=== PATIENT | female | born 1960 | race Two or more races ===

== ENCOUNTER 2017-12-24 08:40 | Emergency (ER) | payer MEDICAID ==
--- NOTE | 2017-12-24 09:02 | ED Physician Chart ---
ED Chief Complaint/HPI - Patient Information Date Seen:: 12/24/17 Time Seen:: 09:02 Chief Complaint:: NAUSEA, VOMITING, DIARRHEA 3 DAYS Allergies:: Allergies Allergy/AdvReac Type Severity Reaction Status Date / Time ampicillin Allergy Verified 12/24/17 08:49 naproxen [From Naprosyn] Allergy Verified 12/24/17 08:49 Family Medical History - Family Member Brother History Unknown: Yes Ethnicity: Living Status: Still Living Hx Family Hypertension: Yes ED Labs/Radiology/EKG Results - Lab Results Results: Laboratory Results - last 24 hr 12/24/17 12/24/17 12/24/17 09:20 09:20 09:20 WBC 5.7 RBC 4.53 Hgb 14.6 Hct 43.4 MCV 95.7 MCH 32.2 H MCHC Differential 33.7 RDW 12.0 Plt Count 226 MPV 8.2 Neutrophils % 66.6 Lymphocytes % 22.8 Monocytes % 9.7 Eosinophils % 0.5 Basophils % 0.4 Sodium 133 L Potassium 3.2 L Chloride 99 Carbon Dioxide 26.2 Anion Gap 11.0 BUN 16 Creatinine 0.8 Est GFR ( Amer) > 60.0 Est GFR (Non-Af Amer) > 60.0 BUN/Creatinine Ratio 20.0 Glucose 98 Whole Bld Lactic Acid 1.15 Calcium 9.0 Total Bilirubin 0.4 AST 18 ALT 17 Alkaline Phosphatase 71 Total Protein 7.3 Albumin 4.5 Globulin 2.8 Albumin/Globulin Ratio 1.6 THE CBC WAS UNREMARKABLE WITH NO LEUKOCYTOSIS OR ANEMIA. METABOLIC STUDIES WERE POSITIVE FOR MILD HYPONATREMIA OF 133 AND HYPO-K LEAMY OF 3.2. RENAL FUNCTION IS NORMAL THE PATIENT IS EUGLYCEMIC WITH A GLUCOSE OF 98 THE WHOLE BLOOD LACTIC ACID IS WITHIN THE NORMAL PARAMETERS. LIVER FUNCTION TESTS WERE WITHIN NORMAL LIMITS. CT SCAN OF THE ABDOMEN AND PELVIS IS STILL PENDING AT THIS TIME. CT ABD/PELVIS; MILD ILIAS ANDDEGENERATING FIBROID. ED Assessment - Assessment General Assessment: CASE SUMMARY: THIS 57-YEAR-OLD FEMALE PRESENTS WITH A 3 THREE DAY HISTORYNAUSEA ,VOMITING,DIARRHEA,AND PAIN IN THE LEFT LOWER QUADRANT. ON PHYSICAL EXAMINATIONTHE PATIENT IS AWAKE AND ALERTWITH MODERATE TENDERNESS TO PALPATIONLEFT LOWER QUADRANT.LABORATORY STUDIES WERE UNREMARKABLEAND CT SCAN OF THE ABDOMENWAS NEGATIVE FOR ANY ACUTE PATHOLOGY.THE PATIENT'S SYMPTOMS WERE ADDRESSED WITH IV NORMAL SALINE,IV MORPHINE,AND IV ZOFRAN.HER SYMPTOMS HAD COMPLETELY RESOLVEDAND THE PATIENT WAS REQUESTING DISCHARGE HOMESHE WAS GIVEN A PRESCRIPTION FOR ZOFRAN 8 MGTO BE USED FOR ANY FURTHER NAUSEA OR VOMITING.SHE WAS FURTHER REVISED TO FOLLOW-UPWITH THEIR PRIMARY CARE PHYSICIANWITHIN TWO OR THREE DAYS. SHE WAS ALSO ADVISEDTHAT SHE CAN RETURN TO THE EMERGENCY DEPARTMENT IF SHE HAD RETURNED TO SIGNIFICANT PAIN, NAUSEA OR VOMITING. MDM DDX LT LOWER QUADRANTPAIN, NAUSEA AND VOMITING:NOT DIVERTICULITISBASED ON CT REPORT.NOT ISCHEMIC NOT COLLIDE USBASED ON PATIENT HISTORY, PHYSICAL EXAMINATION, LABORATORY STUDIES IN CT REPORT. NOT INCARCERATED HERNIABASED ON PHYSICAL EXAMINATIONIN THE CT REPORT. ED Septic Shock - . Is Septic Shock (SBP<90, OR Lactate>4 mmol\L) present?: No ED Discharge Plan - Patient Disposition Admit/Discharge/Transfer: PT DISCHARGED HOME Condition at Disposition: Improved Instructions: Diarrhea, Nausea and Vomiting, Uoad-du-Fjvs
[2017-12-24] MEDS ORDERED: Sodium Chloride 0.9% 1,000 ML IV SCH (09:30)
[2017-12-24 09:31] LABS: % BASOPHILS 0.4 % (0.0-2.0); % EOSINOPHILS 0.5 % (0.0-5.0); % LYMPHOCYTES 22.8 % (20.0-50.0); % MONOCYTES 9.7 % (2.0-10.0); % NEUTROPHILS 66.6 % (40.0-80.0); HEMATOCRIT 43.4 % (41.0-60); HEMOGLOBIN 14.6 gm/dL (12-16); LYMPHOCYTE ABSOLUTE 1.3 Th/cmm (1.5-3.0); MEAN CELL VOLUME 95.7 fl (81-100); MEAN CORPUSCULAR HEMOGLOBIN 32.2 pg (27.0-31.0); MEAN CORPUSCULAR HGB CONC 33.7 pg (28.0-36.0); MEAN PLATELET VOLUME 8.2 fl; MONOCYTE ABSOLUTE 0.6 Th/cmm (0.3-1.0); NEUTROPHILE ABSOLUTE 3.8 Th/cmm (1.8-8.0); PLATELET COUNT 226 Th/cmm (150-400); RED BLOOD COUNT 4.53 Mil/cmm (3.80-5.10); WHITE BLOOD COUNT 5.7 Th/cmm (4.8-10.8)
[2017-12-24 09:49] LABS: ALB/GLOB RATIO 1.6 (1.0-1.8); ALBUMIN 4.5 gm/dL (3.7-5.3); ALKALINE PHOSPHATASE 71 U/L (34-104); BILIRUBIN,TOTAL 0.4 mg/dL (0.3-1.0); BUN - UREA NITROGEN 16 mg/dL (7-25); CARBON DIOXIDE 26.2 mEq/L (21.0-31.0); CHLORIDE 99 mEq/L (98-107); CREATININE - SERUM 0.8 mg/dL (0.6-1.2); GFR AFRICAN-AMERICAN > 60.0 ml/min (>90); GFR NON AFRICAN-AMERICAN > 60.0 ml/min; GLUCOSE 98 mg/dL (70-105); POTASSIUM SERUM 3.2 mEq/L (3.5-5.1); SGOT 18 U/L (13-39); SGPT/ALT 17 U/L (7-52); SODIUM SERUM 133 mEq/L (136-145); TOTAL PROTEIN,SERUM 7.3 gm/dL (6.0-8.3)
[2017-12-24] MEDS ORDERED: IOHEXOL 300mgI/mL 100 ML VIAL ONE (10:15)
--- NOTE | 2017-12-25 08:30 | Diagnostic Imaging Report ---
Exam: CT examination of pelvis. HISTORY: Abdominal pain nausea vomiting. Total DLP equals 335 CTDI equals 7.4 Findings: Multiple contiguous thin section of the abdomen and pelvis obtained from lower thorax to pubic symphysis with administration of intravenous contrast material, no prior studies available comparison. The study demonstrates normal aeration of lung parenchyma the bases. The liver and spleen intact. The kidneys concentrate and excrete contrast material normal fashion. Left renal cyst measuring 2.4 cm appreciated. The pancreas is intact. The gallbladder is normal. The abdominal aorta is calcified. There is evidence for mild ileus. There is no evidence of diverticulitis or diverticular process . The appendix is normal. The uterus demonstrate low density area which might represent degenerative fibroid mass clinical correlation ultrasound exam of pelvis recommended. Uterine bladder is distended. Bony structures demonstrate no evidence for lytic or blastic changes. IMPRESSION: Mild ileus. The uterus demonstrate low density area which might represent degenerative fibroid mass clinical correlation ultrasound exam of pelvis recommended.
== END 2017-12-24 14:00 | disposition home or self-care (01) ==
LOC: ER 08:40
DX: R11.2 Nausea with vomiting, unspecified (principal); R19.7 Diarrhea, unspecified; R10.32 Left lower quadrant pain; Z88.1 Allergy status to other antibiotic agents; Z88.8 Allergy status to other drugs, medicaments and biological substances
CPT/HCPCS: 99285; 74177; 36415; 83605; 85025; 80053; 87040 ×2; J2405; J7030; Q9967

== ENCOUNTER 2018-10-11 12:23 | Inpatient (IN) | payer MEDICAID ==
--- NOTE | 2018-10-11 12:42 | ED Physician Chart ---
ED Chief Complaint/HPI - Patient Information Date Seen:: 10/11/18 Time Seen:: 12:30 Chief Complaint:: Abdominal Pain History of Present Illness:: onset x 3 days of dull, intermittent, crampy epigastric/abdominal pain with N/V/ D and melena; pt denies trauma, LOC, ALOC, AMS, H/As, S/T, neck pain, cough, C/P , SOB, A/C, fever, chills, or urinary s/s Allergies:: Allergies Allergy/AdvReac Type Severity Reaction Status Date / Time ampicillin Allergy Verified 12/24/17 08:49 ibuprofen Allergy Verified 10/11/18 12:38 naproxen [From Naprosyn] Allergy Verified 12/24/17 08:49 Historian:: Patient, Family Member Review:: Nurse's Note Reviewed ED Review of Systems - Review of Systems General/Constitutional: No fever, No chills, No weight loss, No weakness, No diaphoresis, No edema, No loss of appetite Skin: No skin lesions, No rash, No bruising Head: No headache, No light-headedness Eyes: No loss of vision, No pain, No diplopia ENT: No earache, No nasal drainage, No sore throat, No tinnitus Neck: No neck pain, No swelling, No thyromegaly, No stiffness, No mass noted Cardio Vascular: No chest pain, No palpitations, No PND, No orthopnea, No edema Pulmonary: No SOB, No cough, No sputum, No wheezing GI: Nausea, Vomiting, Diarrhea, Pain, Melena, No hematochezia, No constipation, No hematemesis G/U: No dysuria, No frequency, No hematuria, No nacturia Splitter Machine: No vaginal discharge, No abnormal vaginal bleed, No contraction Musculoskeletal: No bone or joint pain, No back pain, No muscle pain Endocrine: No polyuria, No polydipsia Psychiatric: No prior psych history, No depression, No anxiety, No suicidal ideation, No homicidal ideation, No auditory hallucination, No visual hallucination Hematopoietic: No bruising, No lymphadenopathy Allergic/Immuno: No urticaria, No angioedema Neurological: No syncope, No focal symptoms, No weakness, No paresthesia, No headache, No seizure, No dizziness, No confusion, No vertigo ED Past Medical History - Past Medical History Obtainable: Yes Past Medical History: HTN, Dyslipidemia Family History: HTN Social History: Non Smoker, No Alcohol, No Drug Use, Surgical History: None Psychiatricy History: None Medication: Reviewed Family Medical History - Family Member Brother History Unknown: Yes Ethnicity: Living Status: Still Living Hx Family Hypertension: Yes ED Physical Exam - Physical Examination General/Constitutional: Awake, Well-developed, well-nourished, Alert, No distress, GCS 15, Non-toxic appearing, Ambulatory Head: Atraumatic Eyes: Lids, conjuctiva normal, PERRL, EOMI Skin: Nl inspection, No rash, No skin lesions, No ecchymosis, Well hydrated, No lymphadenopathy ENMT: External ears, nose nl, TM canals nl, Nasal exam nl, Lips, teeth, gums nl , Oropharynx nl, Tonsils nl Neck: Nontender, Full ROM w/o pain, No JVD, No nuchal rigidity, No bruit, No mass, No stridor Other Neck comments:: supple; no meningeal signs; no cervical tenderness Respiratory: Nl effort/Exclusion, Clear to Auscultation, No Wheeze/Rhonchi/Rales Cardio Vascular: RRR, No murmur, gallop, rubs, NL S1 S2, Carotid/Femoral/Distal pulses equal bilaterally GI: No tenderness/rebounding/guarding, No organomegaly, No hernia, Normal BS's, Nondistended, No mass/bruits, No McBurney tenderness Other GI comments:: + Melena Stool: + OB; no pulsatile masses : No CVA tenderness Extremities: No tenderness or effusion, Full ROM, normal strength in all extremities, No edema, Normal digits & nails Neuro/Psych: Alert/oriented, DTR's symmetric, Normal sensory exam, Normal motor strength, Judgement/insight normal, Mood normal, Normal gait, No focal deficits Misc: Normal back, No paraspinal tenderness ED Labs/Radiology/EKG Results - Lab Results Comments:: Reviewed - Radiology Results Comments:: Reviewed - EKG Interpretations EKG Time:: 13:21 Rate & Rhythm: 60; NSR Comments:: non-specific st-t changes ED Septic Shock - . Is Septic Shock (SBP<90, OR Lactate>4 mmol\L) present?: No ED Reassessment (Disposition) - Reassessment Reassessment Condition:: Improved - Diagnosis Diagnosis:: Abdominal Pain; N/V/D; AGE; Melena; GI Bleed; Hypertension; Leukocytosis; Hyponatremia; Hyperlipidemia - Aftercare/Follow up Instructions Aftercare/Follow-Up Instructions:: Counseled pt regarding lab results/diagnosis & need follow up, Counseled pt & family regarding lab results/diagnosis & need follow up - Patient Disposition Discharge/Transfer:: Acute Care w/in this hosp Accepting Physician:: Dr. Miller Time Called:: 1430 Time Responded:: 14:30 Admitted to:: Telemetry Spoke to:: Dr. Miller Admitting Medical Physician:: Dr. Miller Condition at Disposition:: Stable, Improved
[2018-10-11] MEDS ORDERED: Sodium Chloride 0.9% 1,000 ML IV ONE (12:45)
[2018-10-11 13:08] LABS: % BASOPHILS 0.6 % (0.0-2.0); % EOSINOPHILS 0.6 % (0.0-5.0); % LYMPHOCYTES 22.4 % (20.0-50.0); % MONOCYTES 4.1 % (2.0-10.0); % NEUTROPHILS 72.3 % (40.0-80.0); BASOPHILE ABSOLUTE 0.1 Th/cumm (0-0.2); EOSINOPHILE ABSOLUTE 0.1 Th/cmm (0.1-0.4); HEMATOCRIT 43.5 % (41.0-60); HEMOGLOBIN 14.7 gm/dL (12-16); LYMPHOCYTE ABSOLUTE 2.5 Th/cmm (1.5-3.0); MEAN CELL VOLUME 95.3 fl (81-100); MEAN CORPUSCULAR HEMOGLOBIN 32.2 pg (27.0-31.0); MEAN CORPUSCULAR HGB CONC 33.7 pg (28.0-36.0); MEAN PLATELET VOLUME 7.8 fl; MONOCYTE ABSOLUTE 0.5 Th/cmm (0.3-1.0); NEUTROPHILE ABSOLUTE 7.9 Th/cmm (1.8-8.0); PLATELET COUNT 245 Th/cmm (150-400); RED BLOOD COUNT 4.56 Mil/cmm (3.80-5.10); WHITE BLOOD COUNT 11.1 Th/cmm (4.8-10.8)
[2018-10-11 13:15] LABS: INR 1.03 (0.5-1.4); PROTHROMBIN TIME (TEST) 10.7 SECONDS (9.5-11.5)
[2018-10-11 13:15] LABS: URINE SOURCE CLEAN C
[2018-10-11 13:28] LABS: URINE BILIRUBIN NEGATIVE (NEGATIVE); URINE BLOOD TRACE (NEGATIVE); URINE GLUCOSE (UA) NEGATIVE (NEGATIVE); URINE KETONE NEGATIVE (NEGATIVE); URINE LEUKOCYTE ESTERASE NEGATIVE (NEGATIVE); URINE MICROSCOPIC INDICATED? YES; URINE NITRATE NEGATIVE (NEGATIVE); URINE PROTEIN NEGATIVE (NEGATIVE); URINE UROBILINOGEN 0.2 E.U./dL (0.2 - 1.0)
[2018-10-11 13:28] LABS: ALB/GLOB RATIO 1.8 (1.0-1.8); ALBUMIN 4.9 gm/dL (3.7-5.3); ALKALINE PHOSPHATASE 75 U/L (34-104); AMYLASE SERUM 48 U/L (29-103); ANION GAP 12.1 (7.0-16.0); BILIRUBIN,TOTAL 0.4 mg/dL (0.3-1.0); BUN - UREA NITROGEN 12 mg/dL (7-25); CALCIUM SERUM 10.1 mg/dL (8.6-10.3); CARBON DIOXIDE 26.4 mEq/L (21.0-31.0); CHLORIDE 98 mEq/L (98-107); CHOLESTEROL 203 mg/dL (<200); CREATININE - SERUM 0.7 mg/dL (0.6-1.2); GFR AFRICAN-AMERICAN > 60.0 ml/min (>90); GFR NON AFRICAN-AMERICAN > 60.0 ml/min; GLUCOSE 98 mg/dL (70-105); HDL -HIGH DENSITY LIPOPROTEIN 73 mg/dL (23-92); LIPASE 17 U/L (11-82); POTASSIUM SERUM 3.5 mEq/L (3.5-5.1); SGOT 14 U/L (13-39); SGPT/ALT 14 U/L (7-52); SODIUM SERUM 133 mEq/L (136-145); TOTAL PROTEIN,SERUM 7.6 gm/dL (6.0-8.3); TRIGLYCERIDES 90 mg/dL (<150)
[2018-10-11 14:11] LABS: URINE CLARITY CLEAR (CLEAR); URINE COLOR YELLOW
[2018-10-11 14:16] LABS: URINE BACTERIA 1+ /hpf (NONE SEEN); URINE EPITHELIAL CELLS MODERATE /lpf (FEW); URINE WBC 0-2 /hpf (0-5)
--- NOTE | 2018-10-11 14:22 | Diagnostic Imaging Report ---
CT abdomen and pelvis without intravenous contrast Indication: Abdominal pain, rule out appendicitis Comparison: CT abdomen and pelvis on 12/24/2017, Technique: Axial images were obtained from the lung bases to the bilateral proximal femurs without IV contrast. Coronal reconstructions were made. total DLP: 376, CTDI8.3 FINDINGS: Hypoventilatory and atelectatic changes of the lungs are noted. Assessment of the solid organs is limited due to lack of IV contrast. There is a punctate granuloma in the left lobe of the liver. No focal splenic or pancreatic lesions. A 2.4 cm left renal cyst is noted. There is a 3 mm calcification along the right renal margins with nodularity in this region. No hydronephrosis. Mild perinephric inflammatory changes are noted. Nonspecific gas-filled loops of bowel noted. There is generalized gastric wall thickening. The appendix is seen containing air located in the right mid abdomen (image 18 through 21 series 3). No free fluid or free air. Diffuse atherosclerosis is noted. Mild degenerative changes spine are noted with old mild compression deformity of T10. IMPRESSION: No evidence of acute appendicitis. Note appendix is located within the right mid abdomen. Marked gastric wall thickening. Inflammatory or neoplastic process cannot be excluded. Correlation is to be made clinically. Small calcification adjacent along the right renal border with small nodularity in this region to small to characterize.. Further characterization with ultrasound or short-term CT follow-up with IV contrast recommended. Mild nonspecific perinephric inflammatory changes. No hydronephrosis. Left renal 2.4 cm cyst. Atherosclerotic vascular disease.
[2018-10-11] MEDS ORDERED: metroNIDAZOLE 500mg/NS 100mL 500 MG/100 ML BAG IV ONE (20:42)
[2018-10-11] MEDS ORDERED: metroNIDAZOLE 500 mg/100 mL Premix Bag IV ONE (22:00)
[2018-10-11] MEDS: D5-0.45NS w/20 mEq KCL 1,000 ML IV SCH (22:35)
[2018-10-12 06:23] LABS: % BASOPHILS 0.3 % (0.0-2.0); % LYMPHOCYTES 43.8 % (20.0-50.0); % MONOCYTES 6.6 % (2.0-10.0); % NEUTROPHILS 48.3 % (40.0-80.0); EOSINOPHILE ABSOLUTE 0.1 Th/cmm (0.1-0.4); HEMOGLOBIN 12.8 gm/dL (12-16); LYMPHOCYTE ABSOLUTE 3.1 Th/cmm (1.5-3.0); MEAN CELL VOLUME 96.3 fl (81-100); MEAN CORPUSCULAR HEMOGLOBIN 32.1 pg (27.0-31.0); MEAN CORPUSCULAR HGB CONC 33.3 pg (28.0-36.0); MEAN PLATELET VOLUME 7.9 fl; MONOCYTE ABSOLUTE 0.5 Th/cmm (0.3-1.0); NEUTROPHILE ABSOLUTE 3.3 Th/cmm (1.8-8.0); PLATELET COUNT 232 Th/cmm (150-400); RED BLOOD COUNT 3.98 Mil/cmm (3.80-5.10); RED CELL DISTRIBUTION WIDTH 11.8 % (11.5-20.0)
[2018-10-12 06:32] LABS: HEMATOCRIT 38.3 % (41.0-60)
[2018-10-12 06:49] LABS: ALB/GLOB RATIO 1.9 (1.0-1.8); ALBUMIN 3.9 gm/dL (3.7-5.3); ALKALINE PHOSPHATASE 59 U/L (34-104); ANION GAP 9.4 (7.0-16.0); BILIRUBIN,TOTAL 0.5 mg/dL (0.3-1.0); BUN - UREA NITROGEN 9 mg/dL (7-25); CALCIUM SERUM 9.1 mg/dL (8.6-10.3); CARBON DIOXIDE 27.4 mEq/L (21.0-31.0); CHLORIDE 105 mEq/L (98-107); CREATININE - SERUM 0.7 mg/dL (0.6-1.2); GFR AFRICAN-AMERICAN > 60.0 ml/min (>90); GFR NON AFRICAN-AMERICAN > 60.0 ml/min; GLUCOSE 105 mg/dL (70-105); POTASSIUM SERUM 3.8 mEq/L (3.5-5.1); SGOT 12 U/L (13-39); SGPT/ALT 10 U/L (7-52); SODIUM SERUM 138 mEq/L (136-145)
[2018-10-12] MEDS: D5-0.45NS w/20 mEq KCL 1,000 ML IV SCH ×2 (08:52→19:33)
[2018-10-12] MEDS ORDERED: metroNIDAZOLE 500mg/NS 100mL 500 MG/100 ML BAG IV SCH (09:00)
[2018-10-12] MEDS: metroNIDAZOLE 500mg/NS 100mL 500 MG/100 ML BAG IV SCH ×2 (13:22→21:53)
--- NOTE | 2018-10-12 15:51 | History & Physical ---
ADMIT DATE: 10/11/2018 REASON FOR ADMISSION: Abdominal pain. HISTORY OF PRESENT ILLNESS: A 58-year-old female who presented with a new onset of abdominal pain associated with possible dark stools. The patient was brought to the Emergency Room, found to have positive occult blood stool and has been admitted for further treatment and care. The patient is seen in the hospital bed. She states that she feels much better now without any abdominal pain anymore. The patient states that she has had history of gastritis in the past. Denies any hematemesis, hematochezia. Denies dizziness or lightheadedness. Denies any nausea, vomiting or diarrhea. PAST MEDICAL HISTORY: The patient states that she has gastritis in the past, but does not really take any medication for it. The patient has history of hypertension. MEDICATIONS: The patient takes lisinopril, hydrochlorothiazide and aspirin. ALLERGIES: THE PATIENT HAS ALLERGY TO NSAIDS AND AMPICILLIN. SOCIAL HISTORY: Denies tobacco, alcohol or illicit drug use. FAMILY HISTORY: Noncontributory. REVIEW OF SYSTEMS: IMMUNOLOGIC: No recurrent infection. CARDIOVASCULAR: No heart disease. The patient does have hypertension. GASTROINTESTINAL: As above. ENDOCRINE: No diabetes or thyroid disorder. NEUROLOGIC: No seizure or stroke. HEMATOLOGIC: No bleeding or clotting disorder. PHYSICAL EXAMINATION: GENERAL: The patient is awake and alert, in no acute distress. VITAL SIGNS: Temperature 98.1, pulse 59, respirations 18, blood pressure 97/48. HEENT: Pupils equally round, anicteric sclerae. NECK: Supple. No JVD, mass or bruit. LUNGS: Clear to auscultation. HEART: S1, S2, regular rate and rhythm. ABDOMEN: Soft, nontender, positive bowel sounds. EXTREMITIES: No clubbing, cyanosis or edema. NEUROLOGIC: No lateralizing signs. No focal deficit. Grossly intact. LABORATORY DATA: On admission, WBC is 11.1, hemoglobin is 12.8. Sodium on admission was 133, currently 138, cholesterol is 203. ASSESSMENT: 1. Melena, rule out gastrointestinal bleed. 2. Possible gastritis. 3. History of hypertension with currently borderline low blood pressure. PLAN: Admit to medical floor. Keep on a full liquid diet. Continue IV Protonix and IV Flagyl. We will obtain another stool OB and monitor H and H. GI consult requested with Dr. Graff. We will hold the patient's blood pressure medication as well as aspirin given her presentation. JOB# [id number]
--- NOTE | 2018-10-12 20:41 | Consultation ---
DATE OF CONSULTATION: 10/12/2018 INPATIENT GASTROINTESTINAL CONSULTATION REFERRING PHYSICIAN: Dr. Miller. REASON FOR CONSULTATION: Epigastric pains, gastritis. HISTORY: A 58-year-old female presents to the hospital with 1 day of epigastric pain that was associated with nausea and vomiting. The patient denies having any diarrhea, melena or hematochezia. PAST MEDICAL HISTORY: Hypertension and hyperlipidemia. PAST SURGICAL HISTORY: . FAMILY HISTORY: Noncontributory. SOCIAL HISTORY: Denies tobacco, alcohol or IV drug usage. ALLERGIES: AMPICILLIN, IBUPROFEN, NAPROXEN. CURRENT MEDICATIONS: Tylenol, Flagyl, Protonix, Restoril. REVIEW OF SYSTEMS: Ten-point review of system was performed and the pertinent positive was the epigastric pain. All the systems were otherwise negative. PHYSICAL EXAMINATION: VITAL SIGNS: Temperature 98.7, breathing 18, pulse of 54, blood pressure is 94/47, satting 97%. GENERAL: In no apparent distress. EYES: Anicteric. Normal conjunctivae. HEENT: Normocephalic, atraumatic. Moist mucous membranes. NECK: Soft, supple. CHEST: Clear, no effort. CARDIOVASCULAR: Regular rate and rhythm. ABDOMEN: Soft, nontender, nondistended, normal bowel sounds. SKIN: Warm, dry. EXTREMITIES: Reveal no cyanosis. PSYCHOLOGIC: Alert and oriented x 3. LABORATORY DATA: Show white count 7, hemoglobin 12.8, platelets 232. INR 1.03, BUN 9, creatinine 0.7, total bilirubin 0.5, AST 12, ALT 10, alkaline phosphatase 59, lipase is 17. test was negative. Her CT abdomen and pelvis showed thickening of the gastric wall. IMPRESSION: This is a 58-year-old female with epigastric pain. CT showing gastritis, which could be the cause of her pain. She seems to be better with Protonix. Given her age an endoscopy is being offered to rule out other things such as peptic ulcer disease, neoplastic process. PLAN: 1. Continue Protonix. 2. Continue supportive care. 3. EGD on Sunday. Thank you for allowing me to participate. Please call me if any questions. JOB# [id number]
[2018-10-13] MEDS: metroNIDAZOLE 500mg/NS 100mL 500 MG/100 ML BAG IV SCH ×3 (06:04→21:52)
[2018-10-13 06:36] LABS: % BASOPHILS 0.6 % (0.0-2.0); % EOSINOPHILS 1.3 % (0.0-5.0); % MONOCYTES 6.7 % (2.0-10.0); % NEUTROPHILS 51.4 % (40.0-80.0); EOSINOPHILE ABSOLUTE 0.1 Th/cmm (0.1-0.4); HEMATOCRIT 35.1 % (41.0-60); HEMOGLOBIN 11.7 gm/dL (12-16); LYMPHOCYTE ABSOLUTE 2.5 Th/cmm (1.5-3.0); MEAN CELL VOLUME 95.3 fl (81-100); MEAN CORPUSCULAR HEMOGLOBIN 31.7 pg (27.0-31.0); MEAN CORPUSCULAR HGB CONC 33.3 pg (28.0-36.0); MEAN PLATELET VOLUME 8.5 fl; MONOCYTE ABSOLUTE 0.4 Th/cmm (0.3-1.0); NEUTROPHILE ABSOLUTE 3.3 Th/cmm (1.8-8.0); PLATELET COUNT 206 Th/cmm (150-400); RED BLOOD COUNT 3.69 Mil/cmm (3.80-5.10); RED CELL DISTRIBUTION WIDTH 12.1 % (11.5-20.0); WHITE BLOOD COUNT 6.3 Th/cmm (4.8-10.8)
[2018-10-13 06:51] LABS: ALBUMIN 3.7 gm/dL (3.7-5.3); ALKALINE PHOSPHATASE 55 U/L (34-104); ANION GAP 9.1 (7.0-16.0); BILIRUBIN,TOTAL 0.4 mg/dL (0.3-1.0); BUN - UREA NITROGEN 8 mg/dL (7-25); CARBON DIOXIDE 27.4 mEq/L (21.0-31.0); CHLORIDE 107 mEq/L (98-107); CREATININE - SERUM 0.7 mg/dL (0.6-1.2); GFR AFRICAN-AMERICAN > 60.0 ml/min (>90); GFR NON AFRICAN-AMERICAN > 60.0 ml/min; GLUCOSE 108 mg/dL (70-105); POTASSIUM SERUM 4.5 mEq/L (3.5-5.1); SGOT 11 U/L (13-39); SGPT/ALT 9 U/L (7-52); SODIUM SERUM 139 mEq/L (136-145); TOTAL PROTEIN,SERUM 5.6 gm/dL (6.0-8.3)
--- NOTE | 2018-10-13 08:34 | GI Progress Note ---
Subjective - Review of Systems Subjective: DENIES ABD PAIN Objective - Results Result Diagrams: 10/13/18 06:00 10/13/18 06:00 Recent Labs: Laboratory Last Values WBC 6.3 Th/cmm (4.8-10.8) 10/13/18 06:00 RBC 3.69 Mil/cmm (3.80-5.10) L 10/13/18 06:00 Hgb 11.7 gm/dL (12-16) L 10/13/18 06:00 Hct 35.1 % (41.0-60) L 10/13/18 06:00 MCV 95.3 fl (81-100) 10/13/18 06:00 MCH 31.7 pg (27.0-31.0) H 10/13/18 06:00 MCHC Differential 33.3 pg (28.0-36.0) 10/13/18 06:00 RDW 12.1 % (11.5-20.0) 10/13/18 06:00 Plt Count 206 Th/cmm (150-400) 10/13/18 06:00 MPV 8.5 fl 10/13/18 06:00 Neutrophils % 51.4 % (40.0-80.0) 10/13/18 06:00 Lymphocytes % 40.0 % (20.0-50.0) 10/13/18 06:00 Monocytes % 6.7 % (2.0-10.0) 10/13/18 06:00 Eosinophils % 1.3 % (0.0-5.0) 10/13/18 06:00 Basophils % 0.6 % (0.0-2.0) 10/13/18 06:00 PT 10.7 SECONDS (9.5-11.5) 10/11/18 12:55 INR 1.03 (0.5-1.4) 10/11/18 12:55 PTT (Actin FS) 25.6 SECONDS (26.0-38.0) L 10/11/18 12:55 Sodium 139 mEq/L (136-145) 10/13/18 06:00 Potassium 4.5 mEq/L (3.5-5.1) 10/13/18 06:00 Chloride 107 mEq/L (98-107) 10/13/18 06:00 Carbon Dioxide 27.4 mEq/L (21.0-31.0) 10/13/18 06:00 Anion Gap 9.1 (7.0-16.0) 10/13/18 06:00 BUN 8 mg/dL (7-25) 10/13/18 06:00 Creatinine 0.7 mg/dL (0.6-1.2) 10/13/18 06:00 Est GFR ( Amer) > 60.0 ml/min (>90) 10/13/18 06:00 Est GFR (Non-Af Amer) > 60.0 ml/min 10/13/18 06:00 BUN/Creatinine Ratio 11.4 10/13/18 06:00 Glucose 108 mg/dL (70-105) H 10/13/18 06:00 POC Glucose 94 MG/DL (70 - 105) 10/11/18 17:47 Calcium 9.0 mg/dL (8.6-10.3) 10/13/18 06:00 Total Bilirubin 0.4 mg/dL (0.3-1.0) 10/13/18 06:00 AST 11 U/L (13-39) L 10/13/18 06:00 ALT 9 U/L (7-52) 10/13/18 06:00 Alkaline Phosphatase 55 U/L (34-104) 10/13/18 06:00 Creatine Kinase 92 U/L (30-223) 10/11/18 12:55 Troponin I < 0.01 ng/mL (0.01-0.05) L 10/11/18 12:55 B-Natriuretic Peptide 12.3 pg/mL (5.0-100.0) 10/11/18 12:55 Total Protein 5.6 gm/dL (6.0-8.3) L 10/13/18 06:00 Albumin 3.7 gm/dL (3.7-5.3) 10/13/18 06:00 Globulin 1.9 gm/dL 10/13/18 06:00 Albumin/Globulin Ratio 2.0 (1.0-1.8) H 10/13/18 06:00 Triglycerides 90 mg/dL (<150) 10/11/18 12:55 Cholesterol 203 mg/dL (<200) H 10/11/18 12:55 LDL Cholesterol Direct 112 mg/dL (75-193) 10/11/18 12:55 HDL Cholesterol 73 mg/dL (23-92) 10/11/18 12:55 Amylase 48 U/L (29-103) 10/11/18 12:55 Lipase 17 U/L (11-82) 10/11/18 12:55 Serum , Qual NEGATIVE (NEGATIVE) 10/11/18 12:55 Urine Source CLEAN C 10/11/18 12:45 Urine Color YELLOW 10/11/18 12:45 Urine Clarity CLEAR (CLEAR) 10/11/18 12:45 Urine pH 7.0 (4.6 - 8.0) 10/11/18 12:45 Ur Specific [place] 1.010 (1.005-1.030) 10/11/18 12:45 Urine Protein NEGATIVE mg/dL (NEGATIVE) 10/11/18 12:45 Urine Glucose (UA) NEGATIVE mg/dL (NEGATIVE) 10/11/18 12:45 Urine Ketones NEGATIVE mg/dL (NEGATIVE) 10/11/18 12:45 Urine Blood TRACE (NEGATIVE) 10/11/18 12:45 Urine Nitrate NEGATIVE (NEGATIVE) 10/11/18 12:45 Urine Bilirubin NEGATIVE (NEGATIVE) 10/11/18 12:45 Urine Urobilinogen 0.2 E.U./dL (0.2 - 1.0) 10/11/18 12:45 Ur Leukocyte Esterase NEGATIVE (NEGATIVE) 10/11/18 12:45 Urine RBC 2-5 /hpf (0-5) 10/11/18 12:45 Urine WBC 0-2 /hpf (0-5) 10/11/18 12:45 Ur Epithelial Cells MODERATE /lpf (FEW) 10/11/18 12:45 Urine Bacteria 1+ /hpf (NONE SEEN) H 10/11/18 12:45 Stool Occult Blood NEGATIVE (NEGATIVE) 10/12/18 16:30 - Physical Exam Vitals and I&O: Vital Signs Temp 97.8 F 10/13/18 05:00 Pulse 52 10/13/18 05:00 Resp 18 10/13/18 05:00 BP 99/49 10/13/18 05:00 Pulse Ox 98 10/13/18 05:00 Intake & Output 10/12/18 10/13/18 10/13/18 18:59 06:59 18:59 Intake Total 2950 100 Balance 2950 100 Weight (lbs) 52.571 kg Intake: Intake, IV Amount 2100 100 D5-0.45NS w/20 mEq KCL 1, 2000 000 ml @ 100 mls/hr IV . Q10H [facility] Rx#:[id number] metroNIDAZOLE 500mg/NS 100 100 100mL 500 mg In 100 ml @ 100 mls/hr IV Q8H [facility] Rx# :[id number] Oral 850 Other: # Voids 2 # Bowel Movements 1 Stool Characteristics Black Black Weight Source Bedscale Active Medications: Current Medications Acetaminophen (Tylenol) 650 mg PO Q4H PRN PRN Reason: Headache Stop: 12/10/18 20:29 Potassium Chloride/Dextrose/Sod Cl (D5-0.45ns W/20 Meq Kcl) 1,000 mls @ 100 mls /hr IV .Q10H [facility] Stop: 12/10/18 17:53 Last Admin: 10/12/18 19:33 Dose: 100 mls/hr Metronidazole (Flagyl) 500 mg in 100 mls @ 100 mls/hr IV Q8H [facility] Stop: 12/11/18 13:59 Last Admin: 10/13/18 06:04 Dose: 100 mls/hr Pantoprazole Sodium (Protonix) 40 mg IVP DAILY [facility] Stop: 12/10/18 20:36 Last Admin: 10/12/18 08:52 Dose: 40 mg Temazepam (Restoril) 15 mg PO HS PRN; Protocol PRN Reason: Insomnia Stop: 12/10/18 20:29 Last Admin: 10/12/18 19:33 Dose: 15 mg - Procedures Procedures: Procedures Procedure Code Date DELIVERY ONLY 65201 05/02/98 DX PROC FETUS/AMNION NEC 75.35 04/30/98 MONITORING NOS 75.34 05/02/98 NON-STRESS TEST 04019 04/30/98 INJECT/INFUSE NEC 99.29 07/08/11 LOW CERVICAL 74.1 05/02/98 MATERNITY CARE PROCEDURE 44791 04/28/98 Assessment/Plan - Problem List Patient Problems: All Active Problems EPIGASTRIC PAIN WITH TARRY STOOLS (Acute) - Assessment Assessment: 58 YO FEMALE WITH GASTRITIS ABNORMAL CT OF THE STOMACH OVERALL BETTER 1.CONT SUPP CARE 2.PROTONIX 3.EGD TOMORROW
[2018-10-13] MEDS: D5-0.45NS w/20 mEq KCL 1,000 ML IV SCH ×2 (12:57→14:00)
--- NOTE | 2018-10-13 17:59 | General Progress Note ---
Subjective - Review of Systems Service Date: 10/13/18 Subjective: resting comfortably denies abdominal pain Objective - Results Result Diagrams: 10/13/18 06:00 10/13/18 06:00 Recent Labs: Laboratory Last Values WBC 6.3 Th/cmm (4.8-10.8) 10/13/18 06:00 RBC 3.69 Mil/cmm (3.80-5.10) L 10/13/18 06:00 Hgb 11.7 gm/dL (12-16) L 10/13/18 06:00 Hct 35.1 % (41.0-60) L 10/13/18 06:00 MCV 95.3 fl (81-100) 10/13/18 06:00 MCH 31.7 pg (27.0-31.0) H 10/13/18 06:00 MCHC Differential 33.3 pg (28.0-36.0) 10/13/18 06:00 RDW 12.1 % (11.5-20.0) 10/13/18 06:00 Plt Count 206 Th/cmm (150-400) 10/13/18 06:00 MPV 8.5 fl 10/13/18 06:00 Neutrophils % 51.4 % (40.0-80.0) 10/13/18 06:00 Lymphocytes % 40.0 % (20.0-50.0) 10/13/18 06:00 Monocytes % 6.7 % (2.0-10.0) 10/13/18 06:00 Eosinophils % 1.3 % (0.0-5.0) 10/13/18 06:00 Basophils % 0.6 % (0.0-2.0) 10/13/18 06:00 PT 10.7 SECONDS (9.5-11.5) 10/11/18 12:55 INR 1.03 (0.5-1.4) 10/11/18 12:55 PTT (Actin FS) 25.6 SECONDS (26.0-38.0) L 10/11/18 12:55 Sodium 139 mEq/L (136-145) 10/13/18 06:00 Potassium 4.5 mEq/L (3.5-5.1) 10/13/18 06:00 Chloride 107 mEq/L (98-107) 10/13/18 06:00 Carbon Dioxide 27.4 mEq/L (21.0-31.0) 10/13/18 06:00 Anion Gap 9.1 (7.0-16.0) 10/13/18 06:00 BUN 8 mg/dL (7-25) 10/13/18 06:00 Creatinine 0.7 mg/dL (0.6-1.2) 10/13/18 06:00 Est GFR ( Amer) > 60.0 ml/min (>90) 10/13/18 06:00 Est GFR (Non-Af Amer) > 60.0 ml/min 10/13/18 06:00 BUN/Creatinine Ratio 11.4 10/13/18 06:00 Glucose 108 mg/dL (70-105) H 10/13/18 06:00 POC Glucose 94 MG/DL (70 - 105) 10/11/18 17:47 Calcium 9.0 mg/dL (8.6-10.3) 10/13/18 06:00 Total Bilirubin 0.4 mg/dL (0.3-1.0) 10/13/18 06:00 AST 11 U/L (13-39) L 10/13/18 06:00 ALT 9 U/L (7-52) 10/13/18 06:00 Alkaline Phosphatase 55 U/L (34-104) 10/13/18 06:00 Creatine Kinase 92 U/L (30-223) 10/11/18 12:55 Troponin I < 0.01 ng/mL (0.01-0.05) L 10/11/18 12:55 B-Natriuretic Peptide 12.3 pg/mL (5.0-100.0) 10/11/18 12:55 Total Protein 5.6 gm/dL (6.0-8.3) L 10/13/18 06:00 Albumin 3.7 gm/dL (3.7-5.3) 10/13/18 06:00 Globulin 1.9 gm/dL 10/13/18 06:00 Albumin/Globulin Ratio 2.0 (1.0-1.8) H 10/13/18 06:00 Triglycerides 90 mg/dL (<150) 10/11/18 12:55 Cholesterol 203 mg/dL (<200) H 10/11/18 12:55 LDL Cholesterol Direct 112 mg/dL (75-193) 10/11/18 12:55 HDL Cholesterol 73 mg/dL (23-92) 10/11/18 12:55 Amylase 48 U/L (29-103) 10/11/18 12:55 Lipase 17 U/L (11-82) 10/11/18 12:55 Serum , Qual NEGATIVE (NEGATIVE) 10/11/18 12:55 Urine Source CLEAN C 10/11/18 12:45 Urine Color YELLOW 10/11/18 12:45 Urine Clarity CLEAR (CLEAR) 10/11/18 12:45 Urine pH 7.0 (4.6 - 8.0) 10/11/18 12:45 Ur Specific [place] 1.010 (1.005-1.030) 10/11/18 12:45 Urine Protein NEGATIVE mg/dL (NEGATIVE) 10/11/18 12:45 Urine Glucose (UA) NEGATIVE mg/dL (NEGATIVE) 10/11/18 12:45 Urine Ketones NEGATIVE mg/dL (NEGATIVE) 10/11/18 12:45 Urine Blood TRACE (NEGATIVE) 10/11/18 12:45 Urine Nitrate NEGATIVE (NEGATIVE) 10/11/18 12:45 Urine Bilirubin NEGATIVE (NEGATIVE) 10/11/18 12:45 Urine Urobilinogen 0.2 E.U./dL (0.2 - 1.0) 10/11/18 12:45 Ur Leukocyte Esterase NEGATIVE (NEGATIVE) 10/11/18 12:45 Urine RBC 2-5 /hpf (0-5) 10/11/18 12:45 Urine WBC 0-2 /hpf (0-5) 10/11/18 12:45 Ur Epithelial Cells MODERATE /lpf (FEW) 10/11/18 12:45 Urine Bacteria 1+ /hpf (NONE SEEN) H 10/11/18 12:45 Stool Occult Blood NEGATIVE (NEGATIVE) 10/12/18 16:30 - Physical Exam Vitals and I&O: Vital Signs Temp 98.2 F 10/13/18 17:00 Pulse 53 10/13/18 17:00 Resp 18 10/13/18 17:00 BP 108/47 10/13/18 17:00 Pulse Ox 98 10/13/18 17:00 Intake & Output 03/16/19 03/17/19 03/17/19 18:59 06:59 18:59 Intake Total 2950 1100 100 Balance 2950 1100 100 Weight (lbs) 52.571 kg Intake: Intake, IV Amount 2100 1100 100 D5-0.45NS w/20 mEq KCL 1, 2000 1000 000 ml @ 100 mls/hr IV . Q10H [facility] Rx#:[id number] metroNIDAZOLE 500mg/NS 100 100 100 100mL 500 mg In 100 ml @ 100 mls/hr IV Q8H [facility] Rx# :[id number] Oral 850 Other: # Voids 2 # Bowel Movements 1 Stool Characteristics Black Black Black Weight Source Bedscale Active Medications: Current Medications Acetaminophen (Tylenol) 650 mg PO Q4H PRN PRN Reason: Headache Stop: 12/10/18 20:29 Potassium Chloride/Dextrose/Sod Cl (D5-0.45ns W/20 Meq Kcl) 1,000 mls @ 100 mls /hr IV .Q10H [facility] Stop: 12/10/18 17:53 Last Admin: 10/13/18 14:00 Dose: 100 mls/hr Metronidazole (Flagyl) 500 mg in 100 mls @ 100 mls/hr IV Q8H [facility] Stop: 12/11/18 13:59 Last Admin: 10/13/18 14:56 Dose: 100 mls/hr Pantoprazole Sodium (Protonix) 40 mg IVP DAILY [facility] Stop: 12/10/18 20:36 Last Admin: 10/13/18 09:12 Dose: 40 mg Temazepam (Restoril) 15 mg PO HS PRN; Protocol PRN Reason: Insomnia Stop: 12/10/18 20:29 Last Admin: 10/12/18 19:33 Dose: 15 mg General: Alert, Oriented x3, No acute distress HEENT: PERRLA Neck: JVD Cardiovascular: Regular rate, Normal S1, Normal S2 Lungs: Clear to auscultation Abdomen: Bowel sounds, Soft - Procedures Procedures: Procedures Procedure Code Date DELIVERY ONLY 78257 05/02/98 DX PROC FETUS/AMNION NEC 75.35 04/30/98 MONITORING NOS 75.34 05/02/98 NON-STRESS TEST 44836 04/30/98 INJECT/INFUSE NEC 99.29 07/08/11 LOW CERVICAL 74.1 05/02/98 MATERNITY CARE PROCEDURE 47528 04/28/98 Assessment/Plan - Problem List Patient Problems: All Active Problems EPIGASTRIC PAIN WITH TARRY STOOLS (Acute) - Assessment Assessment: gastritis anemia HTN - Plan Plan: continue current treatment endoscopy in AM
[2018-10-14 05:50] LABS: % BASOPHILS 0.4 % (0.0-2.0); % EOSINOPHILS 1.3 % (0.0-5.0); % LYMPHOCYTES 43.6 % (20.0-50.0); % MONOCYTES 6.1 % (2.0-10.0); % NEUTROPHILS 48.6 % (40.0-80.0); EOSINOPHILE ABSOLUTE 0.1 Th/cmm (0.1-0.4); HEMATOCRIT 34.8 % (41.0-60); HEMOGLOBIN 11.6 gm/dL (12-16); LYMPHOCYTE ABSOLUTE 2.5 Th/cmm (1.5-3.0); MEAN CELL VOLUME 95.6 fl (81-100); MEAN CORPUSCULAR HEMOGLOBIN 31.9 pg (27.0-31.0); MEAN CORPUSCULAR HGB CONC 33.3 pg (28.0-36.0); MEAN PLATELET VOLUME 7.9 fl; MONOCYTE ABSOLUTE 0.3 Th/cmm (0.3-1.0); NEUTROPHILE ABSOLUTE 2.8 Th/cmm (1.8-8.0); PLATELET COUNT 187 Th/cmm (150-400); RED BLOOD COUNT 3.64 Mil/cmm (3.80-5.10); RED CELL DISTRIBUTION WIDTH 11.8 % (11.5-20.0); WHITE BLOOD COUNT 5.7 Th/cmm (4.8-10.8)
[2018-10-14] MEDS: metroNIDAZOLE 500mg/NS 100mL 500 MG/100 ML BAG IV SCH ×2 (05:53→13:13)
[2018-10-14 05:54] LABS: INR 1.12 (0.5-1.4); PROTHROMBIN TIME (TEST) 11.5 SECONDS (9.5-11.5)
[2018-10-14 05:57] LABS: ANION GAP 10.8 (7.0-16.0); BUN - UREA NITROGEN 8 mg/dL (7-25); CALCIUM SERUM 8.8 mg/dL (8.6-10.3); CARBON DIOXIDE 24.3 mEq/L (21.0-31.0); CHLORIDE 109 mEq/L (98-107); CREATININE - SERUM 0.7 mg/dL (0.6-1.2); GFR AFRICAN-AMERICAN > 60.0 ml/min (>90); GFR NON AFRICAN-AMERICAN > 60.0 ml/min; GLUCOSE 107 mg/dL (70-105); POTASSIUM SERUM 4.1 mEq/L (3.5-5.1); SODIUM SERUM 140 mEq/L (136-145)
--- NOTE | 2018-10-14 11:15 | Diagnostic Imaging Report ---
Portable chest x-ray History: Cough, preoperative Allowing for portable technique the heart size is normal. No focal pulmonary parenchymal processes. No hilar or mediastinal abnormalities. Impression: No acute abnormalities.
[2018-10-14] MEDS: D5-0.45NS w/20 mEq KCL 1,000 ML IV SCH (12:58)
[2018-10-14] MEDS ORDERED: Propofol 10 mg/mL 20mL Vial **SURGERY USE ONLY IV ONE (13:40)
[2018-10-14] MEDS ORDERED: Lidocaine 2% Gel 5 mL TP ONE (13:40)
--- NOTE | 2018-10-14 14:51 | Operative Report ---
DATE OF SURGERY: 10/14/2018 PROCEDURE PERFORMED: Esophagogastroduodenoscopy with biopsy. INDICATION FOR PROCEDURE: Abnormal CAT scan suggestive of malignancy with thickened gastric folds. This was done to rule out gastric cancer. CONSENT: Informed consent was obtained from the patient after outlining benefits and risks including infection, bleeding, perforation, . ANESTHESIA USED: Propofol by Dr. Ahn. PREOPERATIVE DIAGNOSIS: Thickened gastric folds, rule out malignancy. POSTOPERATIVE DIAGNOSES: Diffuse gastritis with erosions. DESCRIPTION OF PROCEDURE: The patient was placed in her back. Head was tilted to the side and flexed forward. Upper Olympus endoscope was introduced into the mouth and advanced to the esophagus, which was intubated under direct visualization. Esophageal mucosa was examined on the way down. It was essentially normal. GE junction was identified at 35 cm. Scope was advanced to the stomach where the gastric mucosa was examined, it showed diffuse gastritis. There was erythema involving the body and antrum. There were a few erosions seen. Scope was advanced through the pylorus to the duodenum where the bulb and second part were examined and they were both normal. Scope was withdrawn to the stomach, retroflexed to examine the cardia and fundus. It showed a small hiatal hernia. Scope was then straightened. Same examination was repeated again without new findings, so biopsies were taken from the antrum for CLOtest and from the antrum and body for histopathology. Scope was then withdrawn while examining the gastric and esophageal mucosa a second time. The patient tolerated the procedure well. There were no immediate postoperative complications. RECOMMENDATIONS: 1. Follow up biopsy results. 2. Treat H. pylori if positive. 3. PPI. Thank you Dr. Miller for allowing me to participate in the care of your patient. If you have any further questions, please let me know. JOB# [id number]
--- NOTE | 2018-10-16 14:57 | Pathology Report ---
[id number] Collection Date: 10/14/2018 Surgeon: Dr. Carolina Arias Specimen Description: Antrum biopsy. Gross Description: Received in formalin are two winters soft tissue fragments measuring 0.1 to 0.2 cm in greatest dimension. Totally submitted in one cassette. Microscopic Description: The histologic sections show gastric mucosa with mild chronic inflammation present consisting of scattered lymphocytes and plasma cells. The Giemsa stain shows no evidence for Helicobacter pylori. At one end of the specimen, there is a cluster of atypical glandular epithelial cells that show crescent shaped nuclei (resembling signet ring cells). There is only minimal nuclear enlargement and no definite evidence for malignancy. Diagnosis: 1. A few atypical glandular cells of uncertain significance (see comment). 2. There is mild chronic gastritis present. 3. The Giemsa stain is negative for Helicobacter pylori. Comment: The histologic findings most likely represent an reactive or inflammatory change, however, the possibility of an underlying neoplastic lesion cannot be entirely excluded based on this superficial mucosal biopsy. Clinical follow-up is recommended to determine if further studies are warranted. These findings are discussed with Dr. Carolina Arias and Dr. Ivy Miller on 10/17/2018. It is recommended that the patient follow-up with a GI specialist in 2 months. If there are persistent clinical symptoms, a repeat biopsy would be advisable. Addendum (10-17-2018): The 'atypical' glandular cells are seen only on the initial histologic slide, and are not appreciated in the subsequent 'deeper' sections that were obtained on this biopsy. [facility]# [id number] [facility]OSPITALDanuta
--- NOTE | 2018-10-24 18:41 | Discharge Summary ---
DATE OF DISCHARGE: 10/14/2018 FINAL DIAGNOSES: 1. Lower gastrointestinal bleeding. 2. Gastritis. 3. Hypertension. REVIEW OF HISTORY: The patient is a 58-year-old female presented to the Emergency Room with abdominal pain, lower GI bleeding, evaluated by the physician, admitted to the hospital. PHYSICAL EXAMINATION: VITAL SIGNS: Temperature 98.1, heart rate 59, blood pressure 97/48. CHEST: Clear to auscultation. ABDOMEN: Soft, bowel sounds positive. GI consultation obtained. COURSE OF HOSPITALIZATION: During hospitalization, the patient was seen by display trimmer. Hemoglobin has remained stable on the second day of hospitalization. The patient denies any nausea, vomiting, abdominal pain. DISPOSITION: The patient discharged home to be followed up with primary physician as outpatient. CONDITION ON DISCHARGE: Stable. MEDICATIONS: Follow discharge reconciliation. [facility]# [id number]
== END 2018-10-14 16:35 | disposition home or self-care (01) | DRG 241 ==
LOC: ER 12:23 → MSI 16:55
PROVIDERS: ADMIT Family Medicine; ATTEND Family Medicine
PROC: 0DB68ZX Excision of Stomach, Via Natural or Artificial Opening Endoscopic, Diagnostic (ICD-10-PCS; principal; 2018-10-14)
DX: K29.01 Acute gastritis with bleeding (principal); E87.1 Hypo-osmolality and hyponatremia; I10 Essential (primary) hypertension; E78.5 Hyperlipidemia, unspecified; D72.829 Elevated white blood cell count, unspecified; D64.9 Anemia, unspecified; K44.9 Diaphragmatic hernia without obstruction or gangrene; Z88.1 Allergy status to other antibiotic agents
CPT/HCPCS: 36415-UA; 71045-TC; 80048-TC; 80053-TC; 80061-TC; 81001-TC; 82150-TC; 82270-TC; 82550-TC; 82948-90; 83690-TC; 83880-TC; 84484-TC; 84703-TC; 85025-TC; 85610-TC; 85730-TC; 87338-TC; 88305-90; 88312-90; 90784; 90799; 93005; 96374; C9113; J2543; J2704; J7030